=== PATIENT | female | born 1950 | race Caucasian/White ===

== ENCOUNTER → 2016-07-25 | Outpatient (CLI) | payer MEDICARE, BC ==
[~2016-07-25] MED LIST: ADVAIR 250/5028 PUFF IN; ALENDRONATE SOD40 MG PO; ALLEGRA-D 24 HO1 T24 PO; ALLEGRA60 MG PO; ALPRAZOLAM0.5 MG PO; AMBIEN 5MG TAB5 MG PO; AMITRIPTYLINE 225 MG PO; AMITRIPTYLINE10 M1 PO; AMITRIPTYLINE50 MG PO; AMLO5TAB PO; AMOXIL500 MG PO; ANTIBIOTIC PO; BACLOFEN 10MG T10 MG PO; BENTYL20 MG PO; BIAXIN250 MG PO; BISOPROLOL/HCTZ1 TA2 PO; CALTRATE 600 +1 TA1 PO; CALTRATE 600600 MG PO; CENTRUM1 TA2 PO; CIPRO 500MG TA500 MG PO; CLOTRIMAZOLE10 MG MM; DICLOFENAC 50MG50 MG PO; DICLOFENAC SOD75 MG PO; DICYCLOMINE HCL20 MG PO; DOCUSATE NA250 MG PO; ENOXAPARIN120 MG/0.8 SC; ESCITALOPRAM 2020 MG PO; FEXOFENADINE180 MG PO; FISH OIL1000 MG PO; FISH OIL500 MG PO; FUROSEMIDE40 MG PO; GABAPENTIN300 MG PO; HYDROCODONE-APA1 TA1 PO; HYDROCODONE/ACE1 TA5 PO; LASIX40 MG PO; LORTAB 500 MG-11 TAB PO; LORTAB 500 MG-71 TAB PO; LOVENOX SY40 MG/0.4 SC; LYRICA 100 MG100 MG PO; LYRICA50 MG PO; MAGMTHWSH PO; METHOTREXA50 MG/2 ML IJ; METHOTREXATE; MORPHINE SULFAT30 M3 PO; NUCYNTA50 MG PO; OMNICEF 300 MG300 MG PO; OXYGEN3 XX; POTASSIUM CHLO20 ME2 PO; PREDNICOT10 MG PO; PREDNISONE 20MG20 MG PO; PREDNISONE 5MG.5 MG PO; PREVACID 30MG C30 M1 PO; PRILOSEC OTC20 MG PO; PRILOSEC20 M1 PO; REGLAN 5MG TABLE5 MG PO; REMERON15 MG PO; SMZ-TMP 800 MG-1 TAB PO; TRAZADONE HYDR100 MG PO; TRAZODONE150 MG PO; URSODIOL300 M1 PO; VENTOLIN H0.09 MG/AC IH; VITAMIN C100 MG PO; VITAMIN C500 M1 PO; VITAMIN D31000 IU PO; XALATAN 0.005%2.5 M1 OP; XALATAN 0.2.5 ML/BOT OP; XANAX 1MG TABLET1 MG PO; XARELTO15 MG PO; ZEBETA 5 MG TABL5 MG PO; ZIAC 10 MG-6.251 TAB PO; ZOFRAN ODT8 MG PO; ZOFRAN4 MG PO
--- NOTE | 2016-07-26 18:22 | RADIOLOGY REPORT PS360 ---
DEXA SCAN.-BONE DENSITY STUDY HIPS AND LUMBAR SPINE HISTORY: Postmenopausal female 66-year-old hyperparathyroidism. Metal in spine, fixation elements and vertebral plasties. TECHNIQUE: DEXA scan hip and lumbar spine The most complete data summary and color graphic presentation of the today's ( and any prior ) DEXA findings are available in PACS. Definition and treatment guidelines included. COMPARISON: None listed LUMBAR SPINE: Not evaluated today due to the previous vertebral plasties and metallic posterior element/fusion elements HIPS: Femoral neck density is best predictor of hip fracture risk . Left femoral neck demonstrates the lowest T score -2.1 with a Z score -1.2 & BMD0.75 g/cm sq . Right femoral neck T score -1.8 Overall Hip Mean T score -1.5 with BMD0.82 g/cm sq . December 2014 DEXA T score -1.8 with mean BMD0.779 g/cm sq Thus this reflects a 5.4% increasein overall mean bone density at the hips in the interval. RADIUS: Osteopenia Distal third of radius with T score -1.5 and, Z score 0.2 near normal. BMD 0.575 Distal view the BMD 0.386 and T score -1.8 age-matched Z score -0.2. When compared to the distal third of the radius measurement from previous 2014 , today there is been no interval change. Again BMD 0.757 on both today and 2014 exam. IMPRESSION 1 RADIUS. Osteopenia stable . Stable osteopenia at distal third of radius T score = -1.5 today No change in BMD distal third radius compared to November 2014 2. HIPS: Osteopenia Overall T score -1.5 . There has been a 5.4% increase overall BMD at hips since November 2014 DEXA Lumbar spine. Prior fusion and vertebroplasty-not imaged WHO criteria for post-menopausal, Women: Normal: T-score at or above -1 SD Osteopenia: T-score between -1 and -2.5 SD Osteoporosis: T-score at or below -2.5 SD
--- NOTE | 2016-07-27 14:21 | RADIOLOGY REPORT PS360 ---
DIG MAMM-SCREEN JOSH W/CAD CAD Screening COMPARISON: Digital mammograms 05/24/2014 and 06/06/2015 INDICATION: There is no personal or family history of breast cancer. There is been previous biopsy left breast TECHNIQUE: Standard CC and MLO images were obtained. R2 CAD reviewed. FINDINGS: The breasts are composed primarily of fat with minimal scattered fibroglandular densities seen in each breast. There is a focal area of linear biopsy scarring extending to just beneath the surface of the skin upper outer quadrant left breast. There is no new or suspicious lesion in either breast and no suspicious microcalcifications. There is a stable small benign-appearing nodular density in the axillary tail the right breast. IMPRESSION: Stable exam with I type breast parenchyma no suspicious lesion seen recommend yearly follow-up BI-RADS CATEGORY: 2_Benign RECOMMENDED FOLLOWUP: 12M 12 MONTH FOLLOW-UP (A letter has been sent to the patient regarding results of the study.)
== END ==
LOC: RAD 07-13 15:30
DX: M81.0 Age-related osteoporosis without current pathological fracture (principal); Z12.31 Encounter for screening mammogram for malignant neoplasm of breast
CPT/HCPCS: G0202

== ENCOUNTER → 2017-02-01 | Outpatient (CLI) | payer MEDICARE, BC ==
[2017-02-01 11:42] LABS: HEMOGLOBIN 12.4 g/dL (12.2-16.2); LYMPH # 1.4 K/mm3 (0.7-4.5); LYMPH % 27.6 % (10-50.0)
[2017-02-01 12:11] LABS: BUN 10 mg/dL (7-18)
[2017-02-01 12:21] LABS: GFR (ESTIMATED) 49 ML/MIN (59-)
[2017-02-01 12:29] LABS: BUN 10 mg/dL (7-18)
[2017-02-01 12:31] LABS: GFR (ESTIMATED) 55 ML/MIN (59-)
[2017-02-02 08:40] LABS: Vitamin D, 25-Hydroxy 43.7 ng/mL (30.0-100.0)
[2017-02-04 12:36] LABS: Osteocalcin 11.5 ng/mL (.)
[2017-02-04 16:36] LABS: Tandem-R Ostase 18.9 ug/L (.)
== END ==
LOC: LAB 10:24
PROVIDERS: Internal Medicine Nephrology; Nurse Practitioner Family
DX: I10 Essential (primary) hypertension (principal); K76.89 Other specified diseases of liver; R60.9 Edema, unspecified; E03.9 Hypothyroidism, unspecified; M81.0 Age-related osteoporosis without current pathological fracture

== ENCOUNTER 2017-03-04 15:57 | Emergency (ER) | payer MEDICARE, BC ==
[~2017-03-04] VITALS: Ht 172.7 cm; Wt 136.1 kg
--- NOTE | 2017-03-04 16:31 | Emergency Room Report ---
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 N Clinical Suspician of Infection? N Mental Status: 1 - Regular (Normal Baseline) Sepsis Risk:Low Sepsis Risk Have you (or family members/close friends) recently traveled outside the [place]? N If Yes, where/when: Have you had exposure to infectious disease within the past month? N TB? Other? Specify: Patient fell three weeks ago, accidentally tripped, hyperflexed her right knee. She uses a walker but has some pain w WB. Has not yet been evaluated by an MD for this. She has chronic back pain for which she takes Lortab. No numbness. ALLERGIES Coded Allergies: erythromycin base (08/10/16) nitrofurantoin (From MACROBID) (08/10/16) GLUTEN (FOOD) (From GLUTEN (FOOD/DRUG)) (Severe, DIARRHEA 08/10/16) THIS ALLERGY WAS ADDED PER PATIENT. gluten (From GLUTEN (FOOD/DRUG)) (Severe, DIARRHEA 08/10/16) THIS ALLERGY WAS ADDED PER PATIENT. Home Medications Active Scripts Ciprofloxacin HCl (Cipro 500MG TAB) 500 MG PO BID #14 TAB Prov: 08/10/16 Reported Medications Furosemide (Furosemide 40MG) 20 MG PO TID FLUTICASONE/SALMETEROL (Advair 250-50 Diskus) 1 PUFF IN BID Bisoprolol Fumarate/Hydrochl (Ziac 10 Mg-6.25 Mg) 1 TAB PO DAILY FEXOFENADINE/PSEUDOEPHEDRINE (Tegan-D 24 Hour Tablet) 1 TAB PO DAILY Trazodone Hcl (Trazodone HCl) 150 MG PO QHS ALBUTEROL (Ventolin Hfa) 1-2 PUFFS IH Q6HP MULTIVITAMIN/IRON/FOLIC ACID (Centrum Complete Multivit Tab) 1 TAB PO QHS OMEPRAZOLE MAGNESIUM (Prilosec OTC) 20 MG PO DAILY CALCIUM CARBONATE/VITAMIN D3 (Caltrate 600 + D Tablet) 1 TAB PO BID URSODIOL 300 MG PO BID Alprazolam (Xanax 1MG) 1 MG PO BID HYDROCODONE/ACETAMINOPHEN (Lortab 10-325 (generic) Tablet) 1 TAB PO Q4HPRN SALMON OIL/OMEGA-3 FATTY ACIDS (Fish Oil 500 MG Softgel) 1,000 MG PO BID POTASSIUM CHL (Potassium Chloride) 20 MEQ PO BID Device (Oxygen Concentrator (Portable)) 1 UNIT XX UD #2 CHOLECALCIFEROL (VITAMIN D3) (Vitamin D) 1,000 IUNITS PO DAILY Latanoprost (Xalatan 0.005% Opth Soln) 1 DROP OP QHS Alendronate Sodium 40 MG PO WEEKLY Escitalopram Oxalate (Escitalopram 20MG) 20 MG PO DAILY Prednisone (Prednisone 5MG) 4 MG PO DAILY Pregabalin (Lyrica 100Mg) 150 MG PO BID History Medical History General CAD? No Angina: Yes IN: No Hypertension? Yes Hyperlipidemia? Yes CHF? No DVT? No PE? No COPD? Yes Asthma? No Anemia? No GERD? No Gastric ulcers? No GI Bleed? No Hernia? Yes Thyroid Problems? No Hypothyroidism? No CVA? No Seizures? No Diabetes? No End Stage Renal Disease? No UTI? Yes Stones? No BPH? No GB Disease: Yes Nephritic Syndrome? No Asplenia? No Hepatitis? Yes Sickle Cell Disease? No Arthritis? No Migraines? No Cataracts? Yes Glaucoma? Yes MRSA? Yes HIV? No TB? No Anxiety? No Depression? No Cancer? No Immunization Hx DT/Tetanus 5-10 Years Ago Flu 2014-16FSN Pneumonia Received In Past Surgical Hx Previous Surgery?Y GALLBLADDER L SHOULDER BI-LAT CARPAL TUNNEL TUBAL LIGATION LIVER BIOPSY R-LUNG BIOPSY LT BREAST BIOPSY BACK SX X3 Family History Family Hx Diabetes Yes CAD Yes Hypertension Yes Hyperlipidemia Yes Cancer Yes TB No Social History Smoking Hx Smoker: Never Smoker Tobacco: No Alcohol Alcohol: No Review of Systems All Other Systems Reviewed and Negative Musculoskeletal see HPI Physical Exam Vital Signs Vital Signs Date Time Temp Pulse Resp B/P Pulse O2 O2 Flow FiO2 Ox Delivery Rate 03/04 1657 72 16 142/72 95 03/04 1600 97.6 60 20 156/71 97 General Appearance normal appearance, WD/WN, no apparent distress, obese Eye Exam - bilateral eye normal exam, bilateral eye PERRL, bilateral eye EOMI Respiratory Status Yes: trachea midline. No: respiratory distress. Cardiovascular no peripheral edema, normal peripheral pulses Extremities non-tender, normal range of motion, normal inspection, no calf tenderness, no pedal edema, subjective pain, right popliteal area w/o any edema, cyst, or laxity; neg anterior drawer sign; slight pain with valgus maneuver; DP PT and popliteal pulses full with no calf tenderness or asymmetry; FROM all joints of BLE; foot warm and well perfused, sensate throughout, brisk CR. Strength 5 Upper Ext (L), 5 Upper Ext (R), 5 Lower Ext (L), 5 Lower Ext (R) Neurologic alert, normal exam, no motor/sensory deficits, oriented x 3 Glascow Coma Scale Glascow Coma Scale Response Value EYE response: 4 Spontaneously 4 MOTOR response: 6 OBEYS 6 VERBAL response: 5 Oriented & Converses 5 Total 15 Skin intact, normal color, warm/dry Medical Decision Making LABS/Meds/Orders Pt receiving controlled substance in ED? No Results/Orders Orders Procedure Date/time Status STABILIZE JOINT 03/04 1737 Active KNEE-3 VIEWS-RT 03/04 1607 Active XRAY/CT/US XRAY/CT/US XRAY knee XR interpretation by reviewed by me Xray Results no fracture seen (DJD neg acute) Departure Departure Time of Disposition 1736 Disposition DC Home or Self Care(routine) Clinical Impression Primary Impression: Knee pain Qualifiers: Chronicity: acute Laterality: right Qualified Code: M25.561 - Pain in right knee Condition STABLE Referrals Maximo HADLEY,Mor (Family) George Lewis MD Patient Instructions DI for Knee Pain Additional Instructions DISHA wrap for comfort, see Dr. Lewis for follow up as well as Dr. Marsh, continue current pain medications as already prescribed, use walker to help prevent falls Discharge Counseling Counseled pt/family regarding diagnosis, test results, medications/RX, home care, follow up needs ED Critical Care Critical Care No at 1738
--- NOTE | 2017-03-04 17:46 | RADIOLOGY REPORT PS360 ---
KNEE-3 VIEWS-RT HISTORY: Knee pain PAIN ORDERING PHYSICIAN: Daniela Peters MD PATIENT AGE: 66 years FINDINGS: There are moderate osteoarthritic changes involving the medial compartment and patellofemoral joint. Spurring is noted along the distal femur and proximal tibia. 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 No acute fracture or dislocation. IMPRESSION: Osteoarthritic change similar to the previous exam of 07/18/2016, no acute finding
[2017-03-04 17:57] VITALS: BP 140/72
--- OUTSIDE RECORDS SUMMARY | 2017-03-27 05:24 | External Medical Summary Rpt ---
Author Author , NITHYA BARRIGA Address Unknown Phone Care Team Providers Care Cnc Service Engineer Name Role Phone [facility] Unavailable Unavailable [facility], [facility] Mor Marsh MD, Unavailable Unavailable Mor Noriega MD, Unavailable Unavailable Juana Noriega MD Purpose Continuity of Care Document - 10-18-2012 through 2016 Problems Code Diagnosis DOS Provider Status 276.51 Dehydration 04-22-2013 [facility] [id number] Arthritis 04-22-2013 [facility] 780.97 Altered 04-22-2013 [facility] 805.4 Compression 04-22-2013 [place] fracture [facility] lumbar [facility] spine [id number] Lumbar disc [facility] radiculopat hy [id number] Orthostatic [facility] 558.9 Gastroenter [facility] 781.3 Ataxia [facility] 787.03 Vomiting [facility] Allergies, Adverse Reactions, Alerts Type Drug Allergy Adverse Reaction to Substance Substance Reaction Severity Macrolide I-ITCHING Intermediate (Erythromycin-Related ) Nitrofurantoin Unknown Mild Medications Na ND Rx Da Fi Fi Am Da Di Ph RX Ph St me C No te ll ll ou ys ag ar # ys at rm s nt no ma ic us Or Da si cy ia de te s n re d MA 00 11 1 No PA 90 -0 P 41 7- Lo 32 98 20 ng 5 26 13 er MG 1 Ac TA ti BL ve ET HY [address] 40 -0 OC 60 7- Lo OD 36 20 ng ON 76 13 er -A 2 CE Ac TA ti HI ve NO PH N 10 -3 25 AM 51 11 1 No LO 07 -0 DI 90 7- Lo PI 45 20 ng NE 12 13 er 0 BE Ac SY ti LA ve TE 5 MG TA B BI 00 11 1 No SO 18 -0 MD 50 7- Lo OL 77 20 ng OL 13 13 er 0 FU Ac MA ti RA ve TE 5 MG TA B OY [address] 90 -0 ER 41 7- Lo 88 20 ng SH 36 13 er EL 1 L Ac CA ti LC ve IU M 50 0 MG TB FU 51 11 1 No RO 07 -0 SE 90 7- Lo HI 07 20 ng DE 32 13 er 0 40 Ac ti MG ve TA BL ET Ga 68 11 1 No ba 08 -0 pe 40 7- Lo nt 08 20 ng in 00 13 er 1 30 Ac 0M ti G ve Ca ps ul e MD 00 11 1 No ED 05 -0 NI 40 7- Lo SO 01 20 ng NE 72 13 er 0 10 Ac ti MG ve TA BL ET PA 11 1 No TI -0 EN 7- Lo T' 20 ng S 13 er OW N Ac HO ti ME ve ME DS SO 00 11 0 No DI 40 -0 UM 97 6- Lo 98 20 ng CH 30 13 er LO 9 RI Ac DE ti ve 0. 9% SO FRANCESCA TI ON Na 76 11 0 No lo 32 -0 xo 91 6- Lo ne 46 20 ng 90 13 er 2M 5 G/ Ac 2M ti L ve Sy ri ng e Sa 63 11 1 No li 80 -0 ne 70 6- Lo 10 20 ng Fl 07 13 er us 5 h Ac 10 ti ML ve Sy ri ng e Na 76 11 0 No lo 32 -0 xo 91 6- Lo ne 46 20 ng 90 13 er 2M 5 G/ Ac 2M ti L ve Sy ri ng e OX 00 09 0 No YC 40 -2 OD 60 3- Lo ON 51 20 ng E- 26 13 er AC 2 ET Ac AM ti IN ve OP HE N 5- 32 5 HY [address] 40 -2 OC 60 3- Lo OD 36 20 ng ON 66 13 er -A 2 CE Ac TA ti HI ve NO PH 7. 5- 32 5 MA 99 09 1 No GI 99 -2 C 99 3- Lo MO 99 20 ng UT 90 13 er HW 0A Ac H; ti 24 ve 0M L SELWYN TT LE AM 51 09 3 No LO 07 -2 DI 90 1- Lo PI 45 20 ng NE 12 13 er 0 BE Ac SY ti LA ve TE 5 MG TA B BI 00 09 3 No SO 18 -2 MD 50 1- Lo OL 77 20 ng OL 13 13 er 0 FU Ac MA ti RA ve TE 5 MG TA B FU 51 09 3 No RO 07 -2 SE 90 1- Lo HI 07 20 ng DE 32 13 er 0 40 Ac ti MG ve TA BL ET GA 62 09 3 No BA 75 -2 PE 60 1- Lo NT 20 20 ng IN 20 13 er 1 60 Ac 0 ti MG ve TA BL ET LO 51 09 3 No RA 07 -2 TA 90 1- Lo DI 24 20 ng NE 62 13 er 0 10 Ac ti MG ve TA BL ET TR 00 09 3 No IP 16 -2 LE 80 1- Lo 01 20 ng AN 20 13 er TI 9 BI Ac OT ti IC ve OI NT ME NT MD 00 09 3 No ED 05 -2 NI 40 1- Lo SO 01 20 ng NE 82 13 er 0 20 Ac ti MG ve TA BL ET PA 09 3 No TI -2 EN 1- Lo T' 20 ng S 13 er OW N Ac HO ti ME ve ME DS PA 51 09 3 No NT 07 -2 OP 90 1- Lo RA 05 20 ng ZO 12 13 er LE 0 Ac SO ti D ve DR 40 MG TA B SO 00 09 1 No DI 40 -2 UM 97 0- Lo 98 20 ng CH 30 13 er LO 9 RI Ac DE ti ve 0. 9% SO FRANCESCA TI ON Sa 63 09 1 No li 80 -2 ne 70 0- Lo 10 20 ng Fl 07 13 er us 5 h Ac 10 ti ML ve Sy ri ng e MA 00 09 4 No PA 90 -2 P 41 0- Lo 32 98 20 ng 5 26 13 er MG 1 Ac TA ti BL ve ET HY [address] 40 -2 OC 60 0- Lo OD 36 20 ng ON 66 13 er -A 2 CE Ac TA ti HI ve NO PH 7. 5- 32 5 HY [address] 40 -2 OM 91 0- Lo OR 31 20 ng PH 23 13 er ON 0 E Ac 2 ti MG ve /M L CA RP UJ CT MO 00 09 3 No RP 40 -2 HI 68 0- Lo NE 33 20 ng 00 13 er HIRSCH 1 LF Ac ti ER ve 30 MG TA BL ET SO 00 09 0 No FRANCESCA 00 -2 -M 90 0- Lo ED 04 20 ng RO 72 13 er L 2 12 Ac 5 ti MG ve AL Al 68 09 4 No pr 08 -2 az 40 0- Lo ol 02 20 ng am 00 13 er 1 1M Ac G ti Ta ve bl et AM 51 09 4 No IT 07 -2 RI 90 0- Lo PT 13 20 ng YL 12 13 er IN 0 E Ac HC ti L ve 10 MG TA B Ga 68 09 1 No ba 08 -2 pe 40 0- Lo nt 08 20 ng in 00 13 er 1 30 Ac 0M ti G ve Ca ps ul e LA 24 09 4 No TA 20 -2 NO 80 0- Lo MD 46 20 ng OS 32 13 er T 5 0. Ac 00 ti 5% ve EY E DR OP S UR 00 09 4 No SO 59 -2 DI 13 0- Lo OL 15 20 ng 90 13 er 30 1 0 Ac MG ti ve CA PS UL E SO 00 05 0 No DI 40 -1 UM 97 6- Lo 98 20 ng CH 30 13 er LO 9 RI Ac DE ti ve 0. 9% SO FRANCESCA TI ON Sa 63 05 1 No li 80 -1 ne 70 6- Lo 10 20 ng Fl 07 13 er us 5 h Ac 10 ti ML ve Sy ri ng e ON 00 05 0 No DA 64 -1 NS 16 6- Lo ET 08 20 ng RO 02 13 er N 5 HC Ac L ti 4 ve MG /2 ML AL MA 00 05 1 No PA 90 -1 P 41 6- Lo 32 98 20 ng 5 26 13 er MG 1 Ac TA ti BL ve ET Ga 68 05 1 No ba 08 -1 pe 40 6- Lo nt 08 20 ng in 00 13 er 1 30 Ac 0M ti G ve Ca ps ul e MD 00 05 1 No ED 05 -1 NI 40 6- Lo SO 01 20 ng NE 72 13 er 0 10 Ac ti MG ve TA BL ET BI 00 05 1 No SO 18 -1 MD 50 6- Lo OL 77 20 ng OL 13 13 er 0 FU Ac MA ti RA ve TE 5 MG TA B LO 00 05 1 No VE 07 -1 NO 50 6- Lo X 62 20 ng 40 04 13 er 1 MG Ac /0 ti .4 ve ML SY RI NG E Al 68 05 1 No pr 08 -1 az 40 6- Lo ol 02 20 ng am 00 13 er 1 1M Ac G ti Ta ve bl et MD 00 05 1 No OT 00 -0 ON 80 5- Lo IX 84 20 ng [address] 9 Ac 40 ti ve MG TA BL ET MD 00 05 1 No ED 05 -0 NI 40 5- Lo SO 01 20 ng NE 72 13 er 0 10 Ac ti MG ve TA BL ET Al 68 05 1 No pr 08 -0 az 40 5- Lo ol 02 20 ng am 00 13 er 1 1M Ac G ti Ta ve bl et BI 00 05 1 No SO 18 -0 MD 50 5- Lo OL 77 20 ng OL 13 13 er 0 FU Ac MA ti RA ve TE 5 MG TA B LO 00 05 1 No VE 07 -0 NO 50 5- Lo X 62 20 ng 40 04 13 er 1 MG Ac /0 ti .4 ve ML SY RI NG E Ga 68 05 1 No ba 08 -0 pe 40 5- Lo nt 08 20 ng in 00 13 er 1 30 Ac 0M ti G ve Ca ps ul e AM 51 05 1 No IT 07 -0 RI 90 5- Lo PT 13 20 ng YL 32 13 er IN 0 E Ac HC ti L ve 50 MG TA B ON 00 05 1 No DA 37 -0 NS 87 5- Lo ET 73 20 ng RO 29 13 er N 3 OD Ac T ti 4 ve MG TA BL ET CE 00 05 2 No FT 40 -0 RI 97 4- Lo AX 33 20 ng ON 30 13 er E 4 1 Ac GM ti ve AL So 00 05 2 No d 07 -0 Ch 47 4- Lo lo 10 20 ng ri 11 13 er de 3 Ac 0. ti 9% ve 50 ML Ad v DE 00 05 2 No XT 40 -0 RO 97 4- Lo SE 92 20 ng 60 13 er 5% 9 -0 Ac .4 ti 5% ve NA CL IV SO LN Me 00 05 2 No th 00 -0 yl 90 4- Lo pr 19 20 ng ed 00 13 er ni 9 so Ac lo ti ne ve So d [facility]sch cc in a HY [address] 40 -0 OC 60 4- Lo OD 36 20 ng ON 76 13 er -A 2 CE Ac TA ti HI ve NO PH N 10 -3 25 Vital Signs 04-24-2013 14:58 Name Value Interpretat Reference Comment ion Range Body 98.3 [degF] Temperature BP 72 mm[Hg] Diastolic BP Systolic 131 mm[Hg] Heart 69 /min Rate/Pulse Respiratory 18 /min Rate 04-24-2013 08:00 Name Value Interpretat Reference Comment ion Range O2% 97 % 04-22-2013 12:10 Name Value Interpretat Reference Comment ion Range Height 172.72 cm Weight 112.974 kg Measured 04-22-2013 09:14 Name Value Interpretat Reference Comment ion Range Body 98.4 [degF] Temperature BP 72 mm[Hg] Diastolic BP Systolic 127 mm[Hg] Heart 50 /min Rate/Pulse O2% 100 % Respiratory 18 /min Rate Weight 0 [oz_av] Measured 03-10-2013 11:30 Name Value Interpretat Reference Comment ion Range Body 97.5 [degF] Temperature BP 84 mm[Hg] Diastolic BP Systolic 162 mm[Hg] Heart 60 /min Rate/Pulse Respiratory 20 /min Rate 03-10-2013 08:00 Name Value Interpretat Reference Comment ion Range O2% 95 % 03-06-2013 18:15 Name Value Interpretat Reference Comment ion Range Height 172.72 cm Weight 106.397 kg Measured 03-06-2013 13:53 Name Value Interpretat Reference Comment ion Range Body 98.1 [degF] Temperature BP 63 mm[Hg] Diastolic BP Systolic 126 mm[Hg] Heart 77 /min Rate/Pulse O2% 93 % Respiratory 20 /min Rate Weight 0 [oz_av] Measured 10-31-2012 16:00 Name Value Interpretat Reference Comment ion Range Body 98.6 [degF] Temperature BP 67 mm[Hg] Diastolic BP Systolic 130 mm[Hg] Heart 68 /min Rate/Pulse Respiratory 20 /min Rate 10-31-2012 08:20 Name Value Interpretat Reference Comment ion Range O2% 98 % 10-30-2012 14:56 Name Value Interpretat Reference Comment ion Range Height 172.72 cm Weight 103.874 kg Measured 10-30-2012 03:32 Name Value Interpretat Reference Comment ion Range Body 98.1 [degF] Temperature BP 67 mm[Hg] Diastolic BP Systolic 130 mm[Hg] Heart 81 /min Rate/Pulse O2% 93 % Respiratory 20 /min Rate Weight 0 [oz_av] Measured 10-20-2012 10:30 Name Value Interpretat Reference Comment ion Range Body 98.4 [degF] Temperature BP 50 mm[Hg] Diastolic BP Systolic 109 mm[Hg] Heart 78 /min Rate/Pulse Respiratory 18 /min Rate 10-20-2012 09:00 Name Value Interpretat Reference Comment ion Range O2% 95 % 10-18-2012 13:32 Name Value Interpretat Reference Comment ion Range O2% 96 % 10-18-2012 13:30 Name Value Interpretat Reference Comment ion Range Body 97.8 [degF] Temperature BP 63 mm[Hg] Diastolic BP Systolic 107 mm[Hg] Heart 58 /min Rate/Pulse Height 152.40 cm Respiratory 20 /min Rate Weight 236 [lb_av] Measured Weight 107.077 kg Measured Results Labs Lab Lab Date Result Refere Interp Status Commen Order Detail nces retati t Range on Comp Metab 1998 Pnl SerPl (01-23-2017 13:02) Comment: [employer] Guidelines Comment: Comment: Stage Description GFR Comment: 1 Normal or High 90+ Comment: 2 Mild decrease 60-89 Comment: 3 Moderate decrease 30-59 Comment: 4 Severe decrease 15-29 Comment: 5 Kidney failure <15 Anion 2.0 3.0-11. complet Gap3 017 mmol/L 0 ed SerPl-s 13:02 Cnc BUN/Cre 14.0 7.0-25. complet at 017 0 ed SerPl 13:02 Albumin 1.3 1.5-2.5 complet /Glob 017 g/dL ed SerPl 13:02 Globuli 3.4 complet n Ur 017 gm/dL ed Elph-mC 13:02 nc GFR/BSA 55 >60 complet .pred 017 mL/min/ ed SerPl 13:02 1.73 MDRD-Ar VRat Bilirub 0.4 0.3-1.2 complet 017 mg/dL ed SerPl-m 13:02 Cnc ALP 130 U/L 25-100 complet SerPl-c 017 ed Cnc 13:02 AST 29 U/L 0-33 complet SerPl-c 017 ed Cnc 13:02 ALT 25 U/L 7-40 complet SerPl w 017 ed 13:02 P-5'-P- cCnc Albumin 4.30 3.20-4. complet 017 g/dL 80 ed SerPl-m 13:02 Cnc Prot 7.7 5.7-8.2 complet SerPl-m 017 g/dL ed Cnc 13:02 Calcium 9.8 8.7-10. complet 017 mg/dL 4 ed XXX-sCn 13:02 c CO2 36.0 20.0-31 complet SerPl-s 017 mmol/L .0 ed Cnc 13:02 Chlorid 90 99-109 complet e 017 mmol/L ed SerPl-s 13:02 Cnc Potassi 4.2 3.5-5.5 complet um 017 mmol/L ed Bld-sCn 13:02 c Sodium 128 132-146 complet Bld-sCn 017 mmol/L ed c 13:02 Creat 1.00 0.60-1. complet Bld-mCn 017 mg/dL 30 ed c 13:02 BUN 14 9-23 complet Bld-mCn 017 mg/dL ed c 13:02 Glucose 95 70-100 complet 017 mg/dL ed Bld-mCn 13:02 c CRP SerPl-mCnc (01-23-2017 13:02) CRP 1.28 0.00-1. complet SerPl-m 017 mg/dL 00 ed Cnc 13:02 ESR Bld Qn (01-23-2017 13:02) ESR Bld 52 0-30 complet Qn 017 mm/hr ed 13:02 CBC W Diff pnl,unspecified Bld (01-23-2017 13:02) Basophi 0.02 0.00-0. complet ls # 017 10*3/mm 20 ed Bld 13:02 3 Auto Eosinop 0.12 0.00-0. complet hil # 017 10*3/mm 30 ed Bld 13:02 3 Auto Monocyt 0.53 0.00-1. complet es # 017 10*3/mm 00 ed Bld 13:02 3 Auto Lymphoc 1.65 0.60-4. complet ytes # 017 10*3/mm 80 ed Bld 13:02 3 Auto Neutrop 3.92 1.50-8. complet hils # 017 10*3/mm 30 ed Bld 13:02 3 Auto Imm 1.6 % 0.0-0.6 complet Granulo 017 ed cytes/l 13:02 euk NFr Bld Basophi 0.3 % 0.0-1.0 complet ls/leuk 017 ed NFr 13:02 Bld Auto Eosinop 1.9 % 0.0-3.0 complet hil/renetta 017 ed k NFr 13:02 Bld Auto Monocyt 8.4 % 0.0-12. complet es/leuk 017 0 ed NFr 13:02 Bld Auto Lymphoc 26.0 % 24.0-44 complet ytes/le 017 .0 ed uk NFr 13:02 Bld Auto Neutrop 61.8 % 41.0-71 complet hils/le 017 .0 ed uk NFr 13:02 Bld Auto Platele 221 150-450 complet t # Bld 017 10*3/mm ed Auto 13:02 3 PMV Bld 10.0 fL 6.0-12. complet Auto 017 0 ed 13:02 RDW RBC 45.5 fl 37.0-54 complet Auto 017 .0 ed 13:02 RDW RBC 13.5 % 11.3-14 complet 017 .5 ed Auto-Rt 13:02 o MCHC 32.9 32.0-36 complet RBC 017 g/dL .0 ed Auto-mC 13:02 nc MCH RBC 30.5 pg 27.0-31 complet Qn 017 .0 ed Auto 13:02 MCV RBC 92.8 fL 80.0-99 complet Auto 017 .0 ed 13:02 Hct VFr 38.9 % 34.5-44 complet Bld 017 .0 ed Auto 13:02 WBC 09-2 6.34 3.50-10 complet nRBC 017 10*3/mm .80 ed cor # 13:02 3 Bld Hgb 01-23-2 12.8 11.5-15 complet Bld-mCn 017 g/dL .5 ed c 13:02 RBC # 09-2 4.19 3.89-5. complet Bld 017 10*6/mm 14 ed Auto 13:02 3 Imm 09-2 0.10 0.00-0. complet Granulo 017 10*3/mm 03 ed cytes # 13:02 3 Bld CRP SerPl-mCnc (07-30-2016 11:53) CRP 16.20 0.00-10 complet SerPl-m 017 mg/dL .00 ed Cnc 11:53 ESR Bld Qn (07-30-2016 11:53) ESR Bld 53 0-30 complet Qn 017 mm/hr ed 11:53 Comp Metab 1998 Pnl SerPl (07-30-2016 11:53) Comment: [employer] Guidelines Comment: Comment: Stage Description GFR Comment: 1 Normal or High 90+ Comment: 2 Mild decrease 60-89 Comment: 3 Moderate decrease 30-59 Comment: 4 Severe decrease 15-29 Comment: 5 Kidney failure <15 BUN 10 9-23 complet Bld-mCn 017 mg/dL ed c 11:53 Anion 1.0 3.0-11. complet Gap3 017 mmol/L 0 ed SerPl-s 11:53 Cnc BUN/Cre 12.5 7.0-25. complet at 017 0 ed SerPl 11:53 Albumin 1.3 1.5-2.5 complet /Glob 017 g/dL ed SerPl 11:53 Globuli 3.1 complet n Ur 017 gm/dL ed Elph-mC 11:53 nc GFR/BSA 71 >60 complet .pred 017 mL/min/ ed SerPl 11:53 1.73 MDRD-Ar VRat Bilirub 0.4 0.3-1.2 complet 017 mg/dL ed SerPl-m 11:53 Cnc ALP 120 U/L 25-100 complet SerPl-c 017 ed Cnc 11:53 AST 32 U/L 0-33 complet SerPl-c 017 ed Cnc 11:53 ALT 33 U/L 7-40 complet SerPl w 017 ed 11:53 P-5'-P- cCnc Albumin 4.10 3.20-4. complet 017 g/dL 80 ed SerPl-m 11:53 Cnc Prot 7.2 5.7-8.2 complet SerPl-m 017 g/dL ed Cnc 11:53 Calcium 9.4 8.7-10. complet 017 mg/dL 4 ed XXX-sCn 11:53 c CO2 37.0 20.0-31 complet SerPl-s 017 mmol/L .0 ed Cnc 11:53 Chlorid 92 99-109 complet e 017 mmol/L ed SerPl-s 11:53 Cnc Potassi 3.8 3.5-5.5 complet um 017 mmol/L ed Bld-sCn 11:53 c Sodium 130 132-146 complet Bld-sCn 017 mmol/L ed c 11:53 Creat 0.80 0.60-1. complet Bld-mCn 017 mg/dL 30 ed c 11:53 Glucose 88 70-100 complet 017 mg/dL ed Bld-mCn 11:53 c BASIC METABOLIC PANEL (04-23-2013 06:30) Glucose 86 74-106 complet 013 mg/dL ed Bld-mCn 06:30 c BUN 32 7-18 complet Bld-mCn 013 mg/dL ed c 06:30 Creat 1.0 0.6-1.0 complet SerPl-m 013 mg/dL ed Cnc 06:30 ESTIMAT 100 50-200 complet ED 013 ML/MIN ed CREATIN 06:30 INE CLEARAN CE GFR 56 59- complet (ESTIMA 013 ML/MIN ed SUDHIR) 06:30 Sodium 137 136-145 complet SerPl-s 013 mmoL/L ed Cnc 06:30 Potassi 3.8 3.5-5.1 complet um 013 mmoL/L ed SerPl-s 06:30 Cnc Chlorid 94 98-107 complet e 013 mmoL/L ed SerPl-s 06:30 Cnc CO2 36 21.0-32 complet SerPl-s 013 mmoL/L .0 ed Cnc 06:30 Calcium 8.0 8.5-10. complet 013 mg/dL 1 ed SerPl-m 06:30 Cnc ARTERIAL BLOOD GAS (04-22-2013 10:40) ARTERIA 7.44 7.35-7. complet L PH 013 MMOL/L 45 ed 10:40 ARTERIA 04-22-2 48.0 35.0-45 complet L PCO2 013 MMHG .0 ed 10:40 ARTERIA 04-22-2 93.3 80-100 complet L PO2 013 MMHG ed 10:40 ARTERIA 2 32.1 22.0-26 complet L HCO3 013 MMOL/L .0 ed 10:40 ARTERIA 04-22-2 33.6 23-27 complet L TCO2 013 MMOL/L ed 10:40 Base 04-22-2 8.0 -2.4-+2 complet excess 013 MMOL/L .3 ed BldA-sC 10:40 nc ARTERIA 2 97.1 % 90-100 complet L O2 013 ed SAT 10:40 OXYGEN 28% complet 013 NASAL ed 10:40 CANNULA Arteria ACCEPTA complet l 013 BLE ed patency 10:40 Wrist a SOURCE RIGHT complet 013 RADIAL ed 10:40 URINALYSIS/COMPLETE (04-22-2013 10:15) URINE 04-22-2 YELLOW YELLOW complet COLOR 013 ed 10:15 URINE 04-22-2 CLEAR CLEAR complet APPEARA 013 ed NCE 10:15 URINE 04-22-2 NEGATIV NEG complet GLUCOSE 013 E ed - 10:15 DIPSTIC K URINE 04-22-2 NEGATIV NEG complet BILIRUB 013 E ed IN - 10:15 DIPSTIC K URINE 04-22-2 NEGATIV NEG complet KETONE 013 E mg/dL ed 10:15 URINE 04-22-2 1.010 1.005-1 complet SPECIFI 013 UNK .030 ed C 10:15 GRAVITY URINE 04-22-2 NEGATIV NEG complet BLOOD 013 E ed 10:15 URINE 04-22-2 6.0 UNK 5.0-8.5 complet PH 013 ed 10:15 URINE 04-22-2 NEGATIV NEG complet PROTEIN 013 E mg/dL ed - 10:15 DIPSTIC K URINE 04-22-2 0.2 NEG complet UROBILI 013 E.U./dL ed NOGEN - 10:15 DIPSTIC K URINE 04-22-2 NEGATIV NEG complet NITRATE 013 E ed - 10:15 DIPSTIC K URINE 04-22-2 NEGATIV NEG complet LEUK 013 E ed ESTERAS 10:15 E URINE OCC 0 complet RBC 013 rbc/hpf ed 10:15 URINE OCC O complet WBC 013 wbc/hpf ed 10:15 URINE OCC 0-5 complet SQUAMOU 013 #/hpf ed S CELLS 10:15 URINE 2+ O complet BACTERI 013 ed A 10:15 COMPREHENSIVE METABOLIC PANEL (04-22-2013 09:50) Glucose 112 74-106 complet 013 mg/dL ed Bld-mCn 09:50 c BUN 61 7-18 complet Bld-mCn 013 mg/dL ed c 09:50 Creat 2.1 0.6-1.0 complet SerPl-m 013 mg/dL ed Cnc 09:50 ESTIMAT 46 50-200 complet ED 013 ML/MIN ed CREATIN 09:50 INE CLEARAN CE GFR 24 59- complet (ESTIMA 013 ML/MIN ed SUDHIR) 09:50 Sodium 131 136-145 complet SerPl-s 013 mmoL/L ed Cnc 09:50 Potassi 3.9 3.5-5.1 complet um 013 mmoL/L ed SerPl-s 09:50 Cnc Chlorid 87 98-107 complet e 013 mmoL/L ed SerPl-s 09:50 Cnc CO2 34 21.0-32 complet SerPl-s 013 mmoL/L .0 ed Cnc 09:50 Calcium 9.2 8.5-10. complet 013 mg/dL 1 ed SerPl-m 09:50 Cnc Prot 6.3 6.4-8.2 complet SerPl-m 013 gm/dL ed Cnc 09:50 Albumin 3.2 3.4-5.0 complet 013 gm/dL ed SerPl-m 09:50 Cnc Globuli 3.1 1.3-3.2 complet n 013 gm/dL ed Ser-mCn 09:50 c Albumin 1.0 UNK 1.1-1.8 complet /Glob 013 ed SerPl-m 09:50 Rto Bilirub 11-06-2 0.4 0.2-1.0 complet 013 mg/dL ed SerPl-m 09:50 Cnc AST 04-22-2 36 U/L 15-37 complet SerPl-c 013 ed Cnc 09:50 ALT 04-22-2 53 U/L 30-65 complet SerPl-c 013 ed Cnc 09:50 ALP 04-22-2 189 U/L 50-136 complet SerPl-c 013 ed Cnc 09:50 CBC with AUTO DIFF (04-22-2013 09:50) WBC # 11-06-2 15.4 4.8-10. complet Bld 013 K/MM3 8 ed Auto 09:50 RBC # 04-22-2 3.79 4.2-5.4 complet Bld 013 M/mm3 ed Auto 09:50 Hgb 04-22-2 11.5 12.2-16 complet Bld-mCn 013 g/dL .2 ed c 09:50 Hct Fr 2 35.4 % 37.0-47 complet Bld 013 .0 ed 09:50 MCV RBC 04-22-2 93.6 fl 82.2-97 complet 013 .8 ed 09:50 MCH RBC 04-22-2 30.5 pg 27-31.2 complet Qn 013 ed Auto 09:50 MEAN 04-22-2 32.6 31.8-35 complet CORPUSC 013 g/dl .4 ed ULAR 09:50 HGB CONC RDW RBC 04-22-2 16.7 % 11.5-17 complet Auto 013 .5 ed 09:50 Platele 04-22-2 264 142-424 complet t Bld 013 K/mm3 ed Ql 09:50 Manual MEAN 04-22-2 7.5 fl 7.4-10. complet PLATELE 013 4 ed T 09:50 VOLUME Granulo 04-22-2 88.1 % 37.0-80 complet cytes 013 .0 ed Fr Bld 09:50 Auto LYMPH % 04-22-2 7.5 % 10-50.0 complet 013 ed 09:50 Monocyt 04-22-2 3.2 % 1.7-9.3 complet es Fr 013 ed Bld 09:50 Auto Eosinop 04-22-2 1.0 % 0.1-12. complet hil Fr 013 0 ed Bld 09:50 Auto Basophi 11-06-2 0.2 % 0.1-2.0 complet ls Fr 013 ed Bld 09:50 Auto Granulo -06-2 13.5 1.8-7.8 complet cytes # 013 K/mm3 ed Bld 09:50 Auto Lymphoc -06-2 1.2 0.7-4.5 complet ytes Fr 013 K/mm3 ed Bld 09:50 Auto Monocyt 11-06-2 0.5 0.1-1.0 complet es # 013 K/mm3 ed Bld 09:50 Auto Eosinop -06-2 0.2 0.0-0.4 complet hil # 013 K/mm3 ed Bld 09:50 Auto Basophi 11-06-2 0.0 0-0.2 complet ls # 013 K/MM3 ed Bld 09:50 Auto URINALYSIS/COMPLETE (03-10-2013 09:30) URINE 09-24-2 YELLOW YELLOW complet COLOR 013 ed 09:30 URINE -24-2 CLEAR CLEAR complet APPEARA 013 ed NCE 09:30 URINE 09-24-2 NEGATIV NEG complet GLUCOSE 013 E ed - 09:30 DIPSTIC K URINE 09-24-2 NEGATIV NEG complet BILIRUB 013 E ed IN - 09:30 DIPSTIC K URINE 09-24-2 NEGATIV NEG complet KETONE 013 E mg/dL ed 09:30 URINE 09-24-2 Less 1.005-1 complet SPECIFI 013 than or .030 ed C 09:30 equal GRAVITY to 1.005 URINE -24-2 NEGATIV NEG complet BLOOD 013 E ed 09:30 URINE -24-2 7.5 UNK 5.0-8.5 complet PH 013 ed 09:30 URINE 09-24-2 NEGATIV NEG complet PROTEIN 013 E mg/dL ed - 09:30 DIPSTIC K URINE 09-24-2 0.2 NEG complet UROBILI 013 E.U./dL ed NOGEN - 09:30 DIPSTIC K URINE 09-24-2 NEGATIV NEG complet NITRATE 013 E ed - 09:30 DIPSTIC K URINE 09-24-2 TRACE NEG complet LEUK 013 ed ESTERAS 09:30 E URINE 09-24-2 3-5 O complet WBC 013 wbc/hpf ed 09:30 URINE 09-24-2 5-10 0-5 complet SQUAMOU 013 #/hpf ed S CELLS 09:30 BASIC METABOLIC PANEL (03-07-2013 06:15) Glucose 124 74-106 complet 013 mg/dL ed Bld-mCn 06:15 c BUN 16 7-18 complet Bld-mCn 013 mg/dL ed c 06:15 Creat 0.9 0.6-1.0 complet SerPl-m 013 mg/dL ed Cnc 06:15 ESTIMAT 105 50-200 complet ED 013 ML/MIN ed CREATIN 06:15 INE CLEARAN CE GFR 63 59- complet (ESTIMA 013 ML/MIN ed SUDHIR) 06:15 Sodium 138 136-145 complet SerPl-s 013 mmoL/L ed Cnc 06:15 Potassi 4.3 3.5-5.1 complet um 013 mmoL/L ed SerPl-s 06:15 Cnc Chlorid 101 98-107 complet e 013 mmoL/L ed SerPl-s 06:15 Cnc CO2 33 21.0-32 complet SerPl-s 013 mmoL/L .0 ed Cnc 06:15 Calcium 8.2 8.5-10. complet 013 mg/dL 1 ed SerPl-m 06:15 Cnc CBC with AUTO DIFF (03-07-2013 06:15) WBC # 03-07- 9.5 4.8-10. complet Bld 013 K/MM3 8 ed Auto 06:15 RBC # 03-07-2 3.84 4.2-5.4 complet Bld 013 M/mm3 ed Auto 06:15 Hgb 11.9 12.2-16 complet Bld-mCn 013 g/dL .2 ed c 06:15 Hct Fr 36.3 % 37.0-47 complet Bld 013 .0 ed 06:15 MCV RBC 94.5 fl 82.2-97 complet 013 .8 ed 06:15 MCH RBC 30.9 pg 27-31.2 complet Qn 013 ed Auto 06:15 MEAN 32.7 31.8-35 complet CORPUSC 013 g/dl .4 ed ULAR 06:15 HGB CONC RDW RBC 21-2 16.0 % 11.5-17 complet Auto 013 .5 ed 06:15 Platele -21-2 251 142-424 complet t Bld 013 K/mm3 ed Ql 06:15 Manual MEAN 21-2 7.8 fl 7.4-10. complet PLATELE 013 4 ed T 06:15 VOLUME Granulo -21-2 91.2 % 37.0-80 complet cytes 013 .0 ed Fr Bld 06:15 Auto LYMPH % -21-2 6.8 % 10-50.0 complet 013 ed 06:15 Monocyt 09-21-2 1.9 % 1.7-9.3 complet es Fr 013 ed Bld 06:15 Auto Eosinop -21-2 0.0 % 0.1-12. complet hil Fr 013 0 ed Bld 06:15 Auto Basophi -21-2 0.1 % 0.1-2.0 complet ls Fr 013 ed Bld 06:15 Auto Granulo -21-2 8.6 1.8-7.8 complet cytes # 013 K/mm3 ed Bld 06:15 Auto Lymphoc -21-2 0.7 0.7-4.5 complet ytes Fr 013 K/mm3 ed Bld 06:15 Auto Monocyt -21-2 0.2 0.1-1.0 complet es # 013 K/mm3 ed Bld 06:15 Auto Eosinop -21-2 0.0 0.0-0.4 complet hil # 013 K/mm3 ed Bld 06:15 Auto Basophi 09-21-2 0.0 0-0.2 complet ls # 013 K/MM3 ed Bld 06:15 Auto COMPREHENSIVE METABOLIC PANEL (03-06-2013 14:15) Glucose 03-06- 89 74-106 complet 013 mg/dL ed Bld-mCn 14:15 c BUN 03-06- 23 7-18 complet Bld-mCn 013 mg/dL ed c 14:15 Creat 03-06-2 1.3 0.6-1.0 complet SerPl-m 013 mg/dL ed Cnc 14:15 ESTIMAT 03-06-2 77 50-200 complet ED 013 ML/MIN ed CREATIN 14:15 INE CLEARAN CE GFR 41 59- complet (ESTIMA 013 ML/MIN ed SUDHIR) 14:15 Sodium 03-06- 139 136-145 complet SerPl-s 013 mmoL/L ed Cnc 14:15 Potassi 03-06- 3.4 3.5-5.1 complet um 013 mmoL/L ed SerPl-s 14:15 Cnc Chlorid 98 98-107 complet e 013 mmoL/L ed SerPl-s 14:15 Cnc CO2 35 21.0-32 complet SerPl-s 013 mmoL/L .0 ed Cnc 14:15 Calcium 03-06- 9.3 8.5-10. complet 013 mg/dL 1 ed SerPl-m 14:15 Cnc Prot 7.4 6.4-8.2 complet SerPl-m 013 gm/dL ed Cnc 14:15 Albumin 3.4 3.4-5.0 complet 013 gm/dL ed SerPl-m 14:15 Cnc Globuli 4.0 1.3-3.2 complet n 013 gm/dL ed Ser-mCn 14:15 c Albumin 0.9 UNK 1.1-1.8 complet /Glob 013 ed SerPl-m 14:15 Rto Bilirub 0.5 0.2-1.0 complet 013 mg/dL ed SerPl-m 14:15 Cnc AST 26 U/L 15-37 complet SerPl-c 013 ed Cnc 14:15 ALT 03-06- 48 U/L 30-65 complet SerPl-c 013 ed Cnc 14:15 ALP 03-06- 178 U/L 50-136 complet SerPl-c 013 ed Cnc 14:15 CBC with AUTO DIFF (03-06-2013 14:15) WBC # 20-2 13.1 4.8-10. complet Bld 013 K/MM3 8 ed Auto 14:15 RBC # 03-06-2 4.08 4.2-5.4 complet Bld 013 M/mm3 ed Auto 14:15 Hgb 03-06-2 12.7 12.2-16 complet Bld-mCn 013 g/dL .2 ed c 14:15 Hct Fr 03-06-2 38.5 % 37.0-47 complet Bld 013 .0 ed 14:15 MCV RBC 20-2 94.3 fl 82.2-97 complet 013 .8 ed 14:15 MCH RBC 20-2 31.0 pg 27-31.2 complet Qn 013 ed Auto 14:15 MEAN 03-06-2 32.9 31.8-35 complet CORPUSC 013 g/dl .4 ed ULAR 14:15 HGB CONC RDW RBC 20-2 16.4 % 11.5-17 complet Auto 013 .5 ed 14:15 Platele 20-2 303 142-424 complet t Bld 013 K/mm3 ed Ql 14:15 Manual MEAN 7.7 fl 7.4-10. complet PLATELE 013 4 ed T 14:15 VOLUME Granulo 20-2 77.2 % 37.0-80 complet cytes 013 .0 ed Fr Bld 14:15 Auto LYMPH % 20-2 15.2 % 10-50.0 complet 013 ed 14:15 Monocyt -20-2 6.6 % 1.7-9.3 complet es Fr 013 ed Bld 14:15 Auto Eosinop -20-2 0.7 % 0.1-12. complet hil Fr 013 0 ed Bld 14:15 Auto Basophi -20-2 0.4 % 0.1-2.0 complet ls Fr 013 ed Bld 14:15 Auto Granulo -20-2 10.1 1.8-7.8 complet cytes # 013 K/mm3 ed Bld 14:15 Auto Lymphoc -20-2 2.0 0.7-4.5 complet ytes Fr 013 K/mm3 ed Bld 14:15 Auto Monocyt 09-20-2 0.9 0.1-1.0 complet es # 013 K/mm3 ed Bld 14:15 Auto Eosinop -20-2 0.1 0.0-0.4 complet hil # 013 K/mm3 ed Bld 14:15 Auto Basophi 09-20-2 0.1 0-0.2 complet ls # 013 K/MM3 ed Bld 14:15 Auto URINALYSIS/COMPLETE (03-06-2013 14:08) URINE 20-2 YELLOW YELLOW complet COLOR 013 ed 14:08 URINE -20-2 CLEAR CLEAR complet APPEARA 013 ed NCE 14:08 URINE -20-2 NEGATIV NEG complet GLUCOSE 013 E ed - 14:08 DIPSTIC K URINE -20-2 NEGATIV NEG complet BILIRUB 013 E ed IN - 14:08 DIPSTIC K URINE -20-2 NEGATIV NEG complet KETONE 013 E mg/dL ed 14:08 URINE -20-2 1.010 1.005-1 complet SPECIFI 013 UNK .030 ed C 14:08 GRAVITY URINE 20-2 NEGATIV NEG complet BLOOD 013 E ed 14:08 URINE 20-2 7.0 UNK 5.0-8.5 complet PH 013 ed 14:08 URINE 20-2 NEGATIV NEG complet PROTEIN 013 E mg/dL ed - 14:08 DIPSTIC K URINE -20-2 0.2 NEG complet UROBILI 013 E.U./dL ed NOGEN - 14:08 DIPSTIC K URINE -20-2 NEGATIV NEG complet NITRATE 013 E ed - 14:08 DIPSTIC K URINE -20-2 NEGATIV NEG complet LEUK 013 E ed ESTERAS 14:08 E URINE 20-2 OCC 0-5 complet SQUAMOU 013 #/hpf ed S CELLS 14:08 URINE 20-2 3+ O complet BACTERI 013 ed A 14:08 BASIC METABOLIC PANEL (10-31-2012 06:35) Glucose 17-2 91 74-106 complet 013 mg/dL ed Bld-mCn 06:35 c BUN 10-31-2 6 mg/dL 7-18 complet Bld-mCn 013 ed c 06:35 Creat 17-2 0.8 0.6-1.0 complet SerPl-m 013 mg/dL ed Cnc 06:35 ESTIMAT -17-2 116 50-200 complet ED 013 ML/MIN ed CREATIN 06:35 INE CLEARAN CE GFR 17-2 72 59- complet (ESTIMA 013 ML/MIN ed SUDHIR) 06:35 Sodium -17-2 135 136-145 complet SerPl-s 013 mmoL/L ed Cnc 06:35 Potassi 10-31-2 3.4 3.5-5.1 complet um 013 mmoL/L ed SerPl-s 06:35 Cnc Chlorid 05-17-2 102 98-107 complet e 013 mmoL/L ed SerPl-s 06:35 Cnc CO2 05-17-2 27 21.0-32 complet SerPl-s 013 mmoL/L .0 ed Cnc 06:35 Calcium 05-17-2 8.1 8.5-10. complet 013 mg/dL 1 ed SerPl-m 06:35 Cnc CBC with AUTO DIFF (10-31-2012 06:35) WBC # 05-17-2 5.7 4.8-10. complet Bld 013 K/MM3 8 ed Auto 06:35 RBC # 05-17-2 3.69 4.2-5.4 complet Bld 013 M/mm3 ed Auto 06:35 Hgb 05-17-2 11.5 12.2-16 complet Bld-mCn 013 g/dL .2 ed c 06:35 Hct Fr 05-17-2 35.3 % 37.0-47 complet Bld 013 .0 ed 06:35 MCV RBC 05-17-2 95.7 fl 82.2-97 complet 013 .8 ed 06:35 MCH RBC 05-17-2 31.1 pg 27-31.2 complet Qn 013 ed Auto 06:35 MEAN 05-17-2 32.5 31.8-35 complet CORPUSC 013 g/dl .4 ed ULAR 06:35 HGB CONC RDW RBC 05-17-2 17.2 % 11.5-17 complet Auto 013 .5 ed 06:35 Platele 05-17-2 247 142-424 complet t Bld 013 K/mm3 ed Ql 06:35 Manual MEAN 05-17-2 7.8 fl 7.4-10. complet PLATELE 013 4 ed T 06:35 VOLUME Granulo 05-17-2 82.0 % 37.0-80 complet cytes 013 .0 ed Fr Bld 06:35 Auto LYMPH % 05-17-2 9.5 % 10-50.0 complet 013 ed 06:35 Monocyt 05-17-2 7.4 % 1.7-9.3 complet es Fr 013 ed Bld 06:35 Auto Eosinop 05-17-2 0.9 % 0.1-12. complet hil Fr 013 0 ed Bld 06:35 Auto Basophi 05-17-2 0.2 % 0.1-2.0 complet ls Fr 013 ed Bld 06:35 Auto Granulo 05-17-2 4.7 1.8-7.8 complet cytes # 013 K/mm3 ed Bld 06:35 Auto Lymphoc 05-17-2 0.5 0.7-4.5 complet ytes Fr 013 K/mm3 ed Bld 06:35 Auto Monocyt 05-17-2 0.4 0.1-1.0 complet es # 013 K/mm3 ed Bld 06:35 Auto Eosinop 05-17-2 0.1 0.0-0.4 complet hil # 013 K/mm3 ed Bld 06:35 Auto Basophi 05-17-2 0.0 0-0.2 complet ls # 013 K/MM3 ed Bld 06:35 Auto C dif Tox A+B Stl Ql (10-31-2012 02:55) C dif 05-17-2 NOT NOT complet Tox A+B 013 DETECTE DETECTE ed Stl Ql 02:55 D C dif Tox A+B Stl Ql (10-30-2012 17:10) C dif 05-16-2 NOT NOT complet Tox A+B 013 DETECTE DETECTE ed Stl Ql 17:10 D URINALYSIS/COMPLETE (10-30-2012 07:15) URINE 05-16-2 YELLOW YELLOW complet COLOR 013 ed 07:15 URINE 05-16-2 CLEAR CLEAR complet APPEARA 013 ed NCE 07:15 URINE 05-16-2 NEGATIV NEG complet GLUCOSE 013 E ed - 07:15 DIPSTIC K URINE 05-16-2 NEGATIV NEG complet BILIRUB 013 E ed IN - 07:15 DIPSTIC K URINE 05-16-2 NEGATIV NEG complet KETONE 013 E mg/dL ed 07:15 URINE 05-16-2 1.010 1.005-1 complet SPECIFI 013 UNK .030 ed C 07:15 GRAVITY URINE 05-16-2 NEGATIV NEG complet BLOOD 013 E ed 07:15 URINE 05-16-2 8.5 UNK 5.0-8.5 complet PH 013 ed 07:15 URINE 05-16-2 NEGATIV NEG complet PROTEIN 013 E mg/dL ed - 07:15 DIPSTIC K URINE 05-16-2 0.2 NEG complet UROBILI 013 E.U./dL ed NOGEN - 07:15 DIPSTIC K URINE NEGATIV NEG complet NITRATE 013 E ed - 07:15 DIPSTIC K URINE NEGATIV NEG complet LEUK 013 E ed ESTERAS 07:15 E URINE OCC 0 complet RBC 013 rbc/hpf ed 07:15 URINE 3-5 O complet WBC 013 wbc/hpf ed 07:15 URINE 3-5 0-5 complet SQUAMOU 013 #/hpf ed S CELLS 07:15 COMPREHENSIVE METABOLIC PANEL (10-30-2012 05:00) Glucose 103 74-106 complet 013 mg/dL ed Bld-mCn 05:00 c BUN 14 7-18 complet Bld-mCn 013 mg/dL ed c 05:00 Creat 0.8 0.6-1.0 complet SerPl-m 013 mg/dL ed Cnc 05:00 ESTIMAT 118 50-200 complet ED 013 ML/MIN ed CREATIN 05:00 INE CLEARAN CE GFR 72 59- complet (ESTIMA 013 ML/MIN ed SUDHIR) 05:00 Sodium 132 136-145 complet SerPl-s 013 mmoL/L ed Cnc 05:00 Potassi 4.5 3.5-5.1 complet um 013 mmoL/L ed SerPl-s 05:00 Cnc Chlorid 95 98-107 complet e 013 mmoL/L ed SerPl-s 05:00 Cnc CO2 25 21.0-32 complet SerPl-s 013 mmoL/L .0 ed Cnc 05:00 Calcium 8.7 8.5-10. complet 013 mg/dL 1 ed SerPl-m 05:00 Cnc Prot 6.7 6.4-8.2 complet SerPl-m 013 gm/dL ed Cnc 05:00 Albumin 3.4 3.4-5.0 complet 013 gm/dL ed SerPl-m 05:00 Cnc Globuli 3.3 1.3-3.2 complet n 013 gm/dL ed Ser-mCn 05:00 c Albumin -16-2 1.0 UNK 1.1-1.8 complet /Glob 013 ed SerPl-m 05:00 Rto Bilirub 10-30-2 0.7 0.2-1.0 complet 013 mg/dL ed SerPl-m 05:00 Cnc AST 16-2 112 U/L 15-37 complet SerPl-c 013 ed Cnc 05:00 ALT -16-2 156 U/L 30-65 complet SerPl-c 013 ed Cnc 05:00 ALP -16-2 188 U/L 50-136 complet SerPl-c 013 ed Cnc 05:00 Amylase SerPl-cCnc (10-30-2012 05:00) Amylase -16-2 37 U/L 25-115 complet 013 ed SerPl-c 05:00 Cnc LIPASE (10-30-2012 05:00) LIPASE -16-2 156 U/L 73-393 complet 013 ed 05:00 C dif Tox A+B Stl Ql (10-30-2012 04:45) C dif 10-30-2 NOT NOT complet Tox A+B 013 DETECTE DETECTE ed Stl Ql 04:45 D CBC with AUTO DIFF (10-30-2012 04:00) WBC # -16-2 11.4 4.8-10. complet Bld 013 K/MM3 8 ed Auto 04:00 RBC # -16-2 4.59 4.2-5.4 complet Bld 013 M/mm3 ed Auto 04:00 Hgb -16-2 14.5 12.2-16 complet Bld-mCn 013 g/dL .2 ed c 04:00 Hct Fr -16-2 44.0 % 37.0-47 complet Bld 013 .0 ed 04:00 MCV RBC -16-2 95.9 fl 82.2-97 complet 013 .8 ed 04:00 MCH RBC -16-2 31.6 pg 27-31.2 complet Qn 013 ed Auto 04:00 MEAN -16-2 33.0 31.8-35 complet CORPUSC 013 g/dl .4 ed ULAR 04:00 HGB CONC RDW RBC -16-2 17.1 % 11.5-17 complet Auto 013 .5 ed 04:00 Platele 05-16-2 360 142-424 complet t Bld 013 K/mm3 ed Ql 04:00 Manual MEAN 10-30- 8.4 fl 7.4-10. complet PLATELE 013 4 ed T 04:00 VOLUME Granulo -16-2 88.3 % 37.0-80 complet cytes 013 .0 ed Fr Bld 04:00 Auto LYMPH % -16-2 5.6 % 10-50.0 complet 013 ed 04:00 Monocyt -16-2 4.3 % 1.7-9.3 complet es Fr 013 ed Bld 04:00 Auto Eosinop -16-2 1.6 % 0.1-12. complet hil Fr 013 0 ed Bld 04:00 Auto Basophi -16-2 0.2 % 0.1-2.0 complet ls Fr 013 ed Bld 04:00 Auto Granulo -16-2 10.1 1.8-7.8 complet cytes # 013 K/mm3 ed Bld 04:00 Auto Lymphoc -16-2 0.6 0.7-4.5 complet ytes Fr 013 K/mm3 ed Bld 04:00 Auto Monocyt -16-2 0.5 0.1-1.0 complet es # 013 K/mm3 ed Bld 04:00 Auto Eosinop -16-2 0.2 0.0-0.4 complet hil # 013 K/mm3 ed Bld 04:00 Auto Basophi -16-2 0.0 0-0.2 complet ls # 013 K/MM3 ed Bld 04:00 Auto COMPREHENSIVE METABOLIC PANEL (10-18-2012 13:45) Glucose 91 74-106 complet 013 mg/dL ed Bld-mCn 13:45 c BUN 12 7-18 complet Bld-mCn 013 mg/dL ed c 13:45 Creat 1.1 0.6-1.0 complet SerPl-m 013 mg/dL ed Cnc 13:45 ESTIMAT 87 50-200 complet ED 013 ML/MIN ed CREATIN 13:45 INE CLEARAN CE GFR 50 59- complet (ESTIMA 013 ML/MIN ed SUDHIR) 13:45 Sodium 132 136-145 complet SerPl-s 013 mmoL/L ed Cnc 13:45 Potassi 05-04-2 4.1 3.5-5.1 complet um 013 mmoL/L ed SerPl-s 13:45 Cnc Chlorid 05-04-2 94 98-107 complet e 013 mmoL/L ed SerPl-s 13:45 Cnc CO2 05-04-2 34 21.0-32 complet SerPl-s 013 mmoL/L .0 ed Cnc 13:45 Calcium 05-04-2 9.0 8.5-10. complet 013 mg/dL 1 ed SerPl-m 13:45 Cnc Prot 05-04-2 6.8 6.4-8.2 complet SerPl-m 013 gm/dL ed Cnc 13:45 Albumin 05-04-2 3.2 3.4-5.0 complet 013 gm/dL ed SerPl-m 13:45 Cnc Globuli 05-04-2 3.6 1.3-3.2 complet n 013 gm/dL ed Ser-mCn 13:45 c Albumin 05-04-2 0.9 UNK 1.1-1.8 complet /Glob 013 ed SerPl-m 13:45 Rto Bilirub 05-04-2 0.5 0.2-1.0 complet 013 mg/dL ed SerPl-m 13:45 Cnc AST 05-04-2 83 U/L 15-37 complet SerPl-c 013 ed Cnc 13:45 ALT 05-04-2 108 U/L 30-65 complet SerPl-c 013 ed Cnc 13:45 ALP 05-04-2 189 U/L 50-136 complet SerPl-c 013 ed Cnc 13:45 CBC with AUTO DIFF (10-18-2012 13:45) WBC # 05-04-2 4.9 4.8-10. complet Bld 013 K/MM3 8 ed Auto 13:45 RBC # 05-04-2 4.17 4.2-5.4 complet Bld 013 M/mm3 ed Auto 13:45 Hgb 05-04-2 13.2 12.2-16 complet Bld-mCn 013 g/dL .2 ed c 13:45 Hct Fr 05-04-2 39.7 % 37.0-47 complet Bld 013 .0 ed 13:45 MCV RBC 05-04-2 95.2 fl 82.2-97 complet 013 .8 ed 13:45 MCH RBC 05-04-2 31.7 pg 27-31.2 complet Qn 013 ed Auto 13:45 MEAN 05-04-2 33.3 31.8-35 complet CORPUSC 013 g/dl .4 ed ULAR 13:45 HGB CONC RDW RBC 05-04-2 17.2 % 11.5-17 complet Auto 013 .5 ed 13:45 Platele 05-04-2 255 142-424 complet t Bld 013 K/mm3 ed Ql 13:45 Manual MEAN 05-04-2 7.5 fl 7.4-10. complet PLATELE 013 4 ed T 13:45 VOLUME Granulo 05-04-2 73.8 % 37.0-80 complet cytes 013 .0 ed Fr Bld 13:45 Auto LYMPH % 05-04-2 15.1 % 10-50.0 complet 013 ed 13:45 Monocyt 05-04-2 8.2 % 1.7-9.3 complet es Fr 013 ed Bld 13:45 Auto Eosinop 05-04-2 2.5 % 0.1-12. complet hil Fr 013 0 ed Bld 13:45 Auto Basophi 05-04-2 0.3 % 0.1-2.0 complet ls Fr 013 ed Bld 13:45 Auto Granulo 05-04-2 3.6 1.8-7.8 complet cytes # 013 K/mm3 ed Bld 13:45 Auto Lymphoc 05-04-2 0.7 0.7-4.5 complet ytes Fr 013 K/mm3 ed Bld 13:45 Auto Monocyt 05-04-2 0.4 0.1-1.0 complet es # 013 K/mm3 ed Bld 13:45 Auto Eosinop 05-04-2 0.1 0.0-0.4 complet hil # 013 K/mm3 ed Bld 13:45 Auto Basophi 05-04-2 0.0 0-0.2 complet ls # 013 K/MM3 ed Bld 13:45 Auto Encounters Encounter Start End Date Code Location Performer Type Date Inpatient [place]ENTE Marsh MD ([place]) 3 09:45 3 15:00 [facility] Inpatient [place]ENTE ACEVEDO ([place]) 3 14:06 3 11:35 [facility] Inpatient CHENTE Dickerson MD ([place]) 3 03:52 3 15:53 [facility] Inpatient CHENTE Noriega ([place]) 3 12:31 3 10:30 [facility]
--- OUTSIDE RECORDS SUMMARY | 2017-03-27 05:24 | External Medical Summary Rpt ---
Author Author , NITHYA BARRIGA Address Unknown Phone [email or web address] Care Team Providers Care [employer] Installer Name Role Phone [facility] Unavailable Unavailable [facility], Psychiatric Mor Marsh MD, Unavailable Unavailable Mor Noriega MD, Unavailable Unavailable Juana Noriega MD Purpose Continuity of Care Document - 10-18-2012 through 2016 Problems Code Diagnosis DOS Provider Status 276.51 Dehydration 04-22-2013 Psychiatric [id number] Arthritis 04-22-2013 [facility] 780.97 Altered 04-22-2013 [facility] 805.4 Compression 04-22-2013 [place] fracture [facility] lumbar [facility] spine [id number] Lumbar disc [facility] radiculopat hy [id number] Orthostatic [facility] 558.9 Gastroenter [facility] 781.3 Ataxia Psychiatric 787.03 Vomiting Psychiatric Allergies, Adverse Reactions, Alerts Type Drug Allergy [...] er -A 2 CE Ac TA ti MT ve NO PH N 10 -3 25 AM 51 11 1 No LO 07 -0 DI 90 7- Lo PI 45 20 ng NE 12 13 er 0 BE Ac SY ti LA ve TE 5 MG TA B BI 00 11 1 No SO 18 -0 OR 50 7- Lo OL 77 20 ng [...] RO 07 -0 SE 90 7- Lo MT 07 20 ng DE 32 13 er 0 40 Ac ti MG ve TA BL ET Ga 68 11 1 No ba 08 -0 pe 40 7- Lo nt 08 20 ng in 00 13 er 1 30 Ac 0M ti G ve Ca ps ul e OR 00 11 1 No ED 05 -0 [...] er -A 2 CE Ac TA ti MT ve NO PH 7. 5- 32 5 [...] 00 09 3 No SO 18 -2 OR 50 1- Lo OL 77 20 ng OL 13 13 er 0 FU Ac MA ti RA ve TE 5 MG TA B FU 51 09 3 No RO 07 -2 SE 90 1- Lo MT 07 20 ng DE 32 13 er [...] ti IC ve OI NT ME NT OR 00 09 3 No ED 05 -2 [...] er -A 2 CE Ac TA ti MT ve NO PH 7. 5- 32 5 [...] TA 20 -2 NO 80 0- Lo OR 46 20 ng OS 32 13 er [...] ti G ve Ca ps ul e OR 00 05 1 No ED 05 -1 NI 40 6- Lo SO 01 20 ng NE 72 13 er 0 10 Ac ti MG ve TA BL ET BI 00 05 1 No SO 18 -1 OR 50 6- Lo OL 77 20 ng [...] Ac G ti Ta ve bl et OR 00 05 1 No OT 00 -0 ON 80 5- Lo IX 84 20 ng [address] 9 Ac 40 ti ve MG TA BL ET OR 00 05 1 No ED 05 -0 [...] 00 05 1 No SO 18 -0 OR 50 5- Lo OL 77 20 ng [...] er -A 2 CE Ac TA ti MT ve NO PH N 10 -3 25 [...] Marsh MD ([place]) 3 09:45 3 15:00 [facility] Inpatient CHENTE ACEVEDO ([place]) 3 14:06 3 11:35 [facility] Inpatient CHENTE Dickerson MD ([place]) 3 03:52 3 15:53 [facility] Inpatient CHENTE Noriega ([place]) 3 12:31 3 10:30 [facility]
--- OUTSIDE RECORDS SUMMARY | 2017-03-27 05:25 | External Medical Summary Rpt ---
Author Author [employer] Organization [employer] Address Unknown Phone Unavailable Purpose Continuity of Care Document - through 2016
--- OUTSIDE RECORDS SUMMARY | 2017-03-27 05:25 | External Medical Summary Rpt ---
Author Author , NITHYA BARRIGA Address Unknown Phone [email or web address] [email or web address] Name Date Rout CVX Reac Dose Comm Prov Is Faci e tion ent ider Refu lity Give sed n PPV2 10-0 33 0.5 Hist PD20 No PD20 3 5-20 mL oric 255 255 17 al Info rmat ion - Sour ce Unsp ecif ied Infl 10-0 Intr 0.5 Hist PD20 No PD20 uenz 5-20 amus mL oric 255 255 a 17 cula al Quad r Info rmat W/Pr ion es - Sour ce Unsp ecif ied Td 03-0 Intr 9 999 Hist H149 No H149 (simba 5-19 amus oric lt), 97 cula al r Info adso rmat rbed ion - Sour ce Unsp ecif ied
--- OUTSIDE RECORDS SUMMARY | 2017-03-27 05:25 | External Medical Summary Rpt ---
Author Author , NITHYA BARRIGA Address Unknown Phone [email or web address] [email or web address] Name Date Rout CVX Reac Dose [...]
--- OUTSIDE RECORDS SUMMARY | 2017-03-27 05:25 | External Medical Summary Rpt ---
Author Author [employer], [employer] Organization [employer] Address Unknown Phone Unavailable Results Creatinine [Mass/volume] in Urine Observa Value Referen Units Interpr Notes Date tion ce etation Range Creatinin 20 - 320 mg/dL Normal No Feb 04 e informati 2016 [Mass/vol on in 12:01 PM ume] in source Urine data Ammonia [Mass/volume] in Unspecified specimen Observa Value Referen Units Interpr Notes Date tion ce etation Range Ammonia 19 - 54 umoL/L Low No Feb 01 [Mass/vol informati 2016 ume] in on in 10:39 AM Unspecifi source ed data specimen INR in Blood by Coagulation assay Observa Value Referen Units Interpr Notes Date tion ce etation Range INR in 0.9 - 1.1 No Normal INDICATIO Feb 01 Blood by informati N 2017 Coagulati on in 10:39 AM on assay source INR data RANGETHER APY FOR DVT, PE, ATRIAL FIB; 2.0 - 3.0PROPHY LAXIS FOR VTETHERAP Y FOR MECHANICA L HEART 2.5 - 3.5VALVE; PREVENTIO N OF SYSTEMICE MBOLISM SECONDARY TO AMI Prothromb 9.4 - SECONDS Normal No Feb 01 in time 11.8 informati 2016 (PT) in on in 10:39 AM Platelet source poor data plasma by Coagulati on assay Comprehensive metabolic 2000 panel in Serum or Plasma Observa Value Referen Units Interpr Notes Date tion ce etation Range Albumin/G 1.1 - 1.8 No Low No Feb 01 lobulin informati informati 2016 [Mass on in on in 10:37 AM ratio] in source source Serum or data data Plasma Albumin 3.4 - 5.0 gm/dL Normal No Feb 01 [Mass/vol informati 2016 ume] in on in 10:37 AM Serum or source Plasma data Alkaline 46 - 116 U/L High No Feb 01 phosphata informati 2016 se on in 10:37 AM [Enzymati source c data activity/ volume] in Serum or Plasma Bilirubin 0.2 - 1.0 mg/dL Normal No Feb 01 .total informati 2016 [Mass/vol on in 10:37 AM ume] in source Serum or data Plasma Urea 7 - 18 mg/dL Normal No Feb 01 nitrogen informati 2016 [Mass/vol on in 10:37 AM ume] in source Serum or data Plasma Calcium 8.5 - mg/dL Normal No Feb 01 [Mass/vol 10.1 informati 2016 ume] in on in 10:37 AM Serum or source Plasma data Chloride 98 - 107 mmoL/L Low No Feb 01 [Moles/vo informati 2017 lume] in on in 10:37 AM Serum or source Plasma data Carbon 21.0 - mmoL/L Normal No Feb 01 dioxide, 32.0 informati 2016 total on in 10:37 AM [Moles/vo source lume] in data Serum or Plasma Creatinin 0.55 - mg/dL Normal No Feb 01 e 1.02 informati 2016 [Mass/vol on in 10:37 AM ume] in source Serum or data Plasma Estimated 59- ML/MIN Low REFERENCE Feb 01 RANGE: 2017 glomerula >60 10:37 AM r ML/MIN/1. filtratio 73 SQUARE n rate METERSIf (GF this patient is -A merican, then multiply theresult by 1.210. Globulin 1.3 - 3.2 gm/dL High No Feb 01 [Mass/vol informati 2017 ume] in on in 10:37 AM Serum source data Glucose 74 - 106 mg/dL Low No Feb 01 [Mass/vol informati 2016 ume] in on in 10:37 AM Serum or source Plasma data Potassium 3.5 - 5.1 mmoL/L Normal No Feb 01 inform2016 [Moles/vo on in 10:37 AM lume] in source Serum or data Plasma Sodium 136 - 145 mmoL/L Low No Feb 01 [Moles/vo informati 2017 lume] in on in 10:37 AM Serum or source Plasma data Aspartate 15 - 37 U/L Normal No Feb 012016 aminotran on in 10:37 AM sferase source [Enzymati data c activity/ volume] in Serum or Plasma Alanine 12 - 78 U/L Normal No Feb 01 aminotran inform2016 sferase on in 10:37 AM [Enzymati source c data activity/ volume] in Serum or Plasma Protein 6.4 - 8.2 gm/dL Normal No Jan 18 [Mass/vol inform2016 ume] in on in 10:37 AM Serum or source Plasma data Lipid 1996 panel in Serum or Plasma Observa Value Referen Units Interpr Notes Date tion ce etation Range Cholester < 200 mg/dL No No Jan 18 ol ati 2016 [Moles/vo on in on in 10:37 AM lume] in source source Unspecifi data data ed specimen Cholester 40 - 60 MG/DL High No Feb 01 ol in HDL 2016 on in 10:37 AM [Mass/vol source ume] in data Serum or Plasma Cholester 0 - 130 mg/dL Normal No Feb 01 ol in LDL 2016 on in 10:37 AM [Mass/vol source ume] in data Serum or Plasma by calculati on Triglycer 30 - 200 mg/dL Normal No Feb 01 mary 2016 [Moles/vo on in 10:37 AM lume] in source Serum or data Plasma Cholester 0 - 40 No Normal No Feb 01 ol in 2016 VLDL on in on in 10:37 AM [Mass/vol source source ume] in data data Serum or Plasma Thyrotropin [Units/volume] in Serum or Plasma Observa Value Referen Units Interpr Notes Date tion ce etation Range Thyrotrop 0.358 - uIU/ml No No Jan 18 in 3.740 2016 [Units/vo on in on in 10:37 AM lume] in source source Serum or data data Plasma CBC W Auto Differential panel in Blood Observa Value Referen Units Interpr Notes Date tion ce etation Range Basophils 0 - 0.2 K/MM3 Normal No Feb 012016 [#/volume on in 10:37 AM ] in source Blood by data Automated count Basophils 0.1 - 2.0 % Normal No Jan 18 /100 2016 leukocyte on in 10:37 AM s in source Blood by data Automated count Eosinophi 0.0 - 0.4 K/mm3 Normal No Jan 18 ls 2016 [#/volume on in 10:37 AM ] in source Blood by data Automated count Eosinophi 0.1 - % Normal No Feb 01 ls/100 12.0 2016 leukocyte on in 10:37 AM s in source Blood by data Automated count Granulocy 1.8 - 7.8 K/mm3 Normal No Feb 01 virgilio inform2016 [#/volume on in 10:37 AM ] in source Blood by data Automated count Granulocy 37.0 - % Normal No Feb 01 virgilio/100 80.0 2016 leukocyte on in 10:37 AM s in source Blood by data Automated count Hematocri 37.0 - % Low No Feb 01 t [Volume 47.0 informati 2016 on in 10:37 AM Fraction] source of Blood data Hemoglobi 12.2 - g/dL Normal No Feb 01 n 16.2 informati 2016 [Mass/vol on in 10:37 AM ume] in source Blood data Lymphocyt 0.7 - 4.5 K/mm3 Normal No Feb 01 es inform2016 [#/volume on in 10:37 AM ] in source Unspecifi data ed specimen by Automated count Lymphocyt 10 - 50.0 % Normal No Feb 01 es 2016 [#/volume on in 10:37 AM ] in source Unspecifi data ed specimen by Automated count Erythrocy 27 - 31.2 pg High No Feb 01 te mean 2016 corpuscul on in 10:37 AM ar source hemoglobi data n [Entitic mass] Erythrocy 31.8 - g/dl Normal No Feb 01 te mean 35.4 2016 corpuscul on in 10:37 AM ar source hemoglobi data n concentra tion [Mass/vol ume] by Automated count Erythrocy 82.2 - fl Normal No Feb 01 te mean 97.8 2016 corpuscul on in 10:37 AM ar volume source [Entitic data volume] by Automated count Monocytes 0.1 - 1.0 K/mm3 Normal No Feb 012016 [#/volume on in 10:37 AM ] in source Blood by data Automated count Monocytes 1.7 - 9.3 % Normal No Feb 01 /100 inform2016 leukocyte on in 10:37 AM s in source Blood by data Automated count Platelet 7.4 - fl Normal No Feb 01 mean 10.4 2016 volume on in 10:37 AM [Entitic source volume] data in Blood by Automated count Platelets 142 - 424 K/mm3 Normal No Feb 01 inform2016 [#/volume on in 10:37 AM ] in source Blood data Erythrocy 4.2 - 5.4 M/mm3 Low No Feb 01 virgilio 2016 [#/volume on in 10:37 AM ] in source Amniotic data fluid Erythrocy 11.5 - % Normal No Feb 01 te 17.5 informati 2017 distribut on in 10:37 AM ion width source [Entitic data volume] by Automated count Leukocyte 4.8 - K/MM3 Normal No Feb 01 s 10.8 informati 2016 [#/volume on in 10:37 AM ] in source Blood data Alk Phosphatase, Bone Specific Observa Value Referen Units Interpr Notes Date tion ce etation Range Alkaline . ug/L No Premenopa Feb 01 phosphata informati usal 2017 se.bone on in Women: 10:27 AM [Mass/vol source ume] in data 6.0 - Serum or 22.7Postm Plasma enopausal Women: 8.1 - 31.6Perfo rmed at: [address] [id number] Hospitality Intern: Guillermo Simms MD, Phone: [phone] Collagen crosslinked N-telopeptide [Moles/volume] in Serum Observa Value Referen Units Interpr Notes Date tion ce etation Range Collagen 6.2 - No High INFCE Feb 01 crosslink 19.0 informati Result 2017 ed on in Units: 10:27 AM N-telopep source nmol tide data BCE/LPerf [Moles/vo ormed at: lume] in - Serum Lab[address] [id number] Hospitality Intern: Guillermo Simms MD, Phone: [phone] Osteocalcin [Mass/volume] in Serum or Plasma Observa Value Referen Units Interpr Notes Date tion ce etation Range Osteocalc . ng/mL No Pre-menop Feb 01 in informati ausal 2017 [Mass/vol on in Women 10:27 AM ume] in source 4.9 - Serum or data 30.9Post- Plasma menopausa l Women 9.4 - 47.4Perfo rmed at: [address] [id number] Hospitality Intern: Guillermo Simms MD, Phone: [phone] 25-Hydroxyvitamin D [Mass/volume] in Serum or Plasma Observa Value Referen Units Interpr Notes Date tion ce etation Range 25-Hydrox 30.0 - ng/mL No Vitamin D Feb 01 yvitamin 100.0 informati 2017 D on in deficienc 10:27 AM [Mass/vol source y has ume] in data been Serum or defined Plasma by the [place] [facility] e and an Endocrine Society practice guideline as alevel of serum 25-OH vitamin D less than 20 ng/mL (1,2).The Endocrine Society went on to further define vitamin Dinsuffic iency as a level between 21 and 29 ng/mL (2).1. IOM (Institut e of Medicine) . 2010. Dietary reference intakes for calcium and D. [place]: [employer].2. Julius MF, [place], Howie Petit DIMAS, et al.Evalua tion, treatment , and preventio n of vitamin Ddeficien cy: an Endocrine Society clinical practiceg uideline. JCEM. 2010; 96(7):191 1-30.Perf ormed at: [facility] - [facility] [place] [address] [address] [place] [id number] Hospitality Intern: Aris Hernandez PhD, Phone: [phone] Renal function 2000 panel in Serum or Plasma Observa Value Referen Units Interpr Notes Date tion ce etation Range Albumin 3.4 - 5.0 gm/dL Normal No Feb 01 [Mass/vol informati 2016 ume] in on in 10:27 AM Serum or source Plasma data Urea 7 - 18 mg/dL Normal No Feb 01 nitrogen inform2016 [Mass/vol on in 10:27 AM ume] in source Serum or data Plasma Calcium 8.5 - mg/dL Normal No Feb 01 [Mass/vol 10.1 informati 2016 ume] in on in 10:27 AM Serum or source Plasma data Chloride 98 - 107 mmoL/L Low No Feb 01 [Moles/vo informati 2017 lume] in on in 10:27 AM Serum or source Plasma data Carbon 21.0 - mmoL/L Normal No Feb 01 dioxide, 32.0 informati 2017 total on in 10:27 AM [Moles/vo source lume] in data Serum or Plasma Creatinin 0.55 - mg/dL High No Feb 01 e 1.02 informati 2016 [Mass/vol on in 10:27 AM ume] in source Serum or data Plasma Estimated 59- ML/MIN Low REFERENCE Feb 01 RANGE: 2017 glomerula >60 10:27 AM r ML/MIN/1. filtratio 73 SQUARE n rate METERSIf (GF this patient is -A merican, then multiply theresult by 1.210. Glucose 74 - 106 mg/dL Low No Feb 01 [Mass/vol informati 2016 ume] in on in 10:27 AM Serum or source Plasma data Potassium 3.5 - 5.1 mmoL/L Normal No Feb 01 inform2016 [Moles/vo on in 10:27 AM lume] in source Serum or data Plasma Sodium 136 - 145 mmoL/L Low No Feb 01 [Moles/vo informati 2016 lume] in on in 10:27 AM Serum or source Plasma data Phosphate 2.4 - 4.9 mg/dL Normal No Feb 01 inform2016 [Moles/vo on in 10:27 AM lume] in source Unspecifi data ed specimen Comprehensive metabolic 2000 panel in Serum or Plasma Observa Value Referen Units Interpr Notes Date tion ce etation Range Albumin/G 1.1 - 1.8 No Low No November 09 lobulin informati informati 2016 2:49 [Mass on in on in PM ratio] in source source Serum or data data Plasma Albumin 3.4 - 5.0 gm/dL Low No November 09 [Mass/vol informati 2016 2:49 ume] in on in PM Serum or source Plasma data Alkaline 46 - 116 U/L High No November 09 phosphata informati 2016 2:49 se on in PM [Enzymati source c data activity/ volume] in Serum or Plasma Bilirubin 0.2 - 1.0 mg/dL Normal No November 09 .total informati 2016 2:49 [Mass/vol on in PM ume] in source Serum or data Plasma Urea 7 - 18 mg/dL Normal No November 09 nitrogen informati 2016 2:49 [Mass/vol on in PM ume] in source Serum or data Plasma Calcium 8.5 - mg/dL Normal No November 09 [Mass/vol 10.1 informati 2016 2:49 ume] in on in PM Serum or source Plasma data Chloride 98 - 107 mmoL/L Low No November 09 [Moles/vo informati 2016 2:49 lume] in on in PM Serum or source Plasma data Carbon 21.0 - mmoL/L Normal No November 09 dioxide, 32.0 informati 2016 2:49 total on in PM [Moles/vo source lume] in data Serum or Plasma Creatinin 0.55 - mg/dL Normal No November 09 e 1.02 inform2016 2:49 [Mass/vol on in PM ume] in source Serum or data Plasma Estimated 59- ML/MIN Low REFERENCE November 09 RANGE: 2016 2:49 glomerula >60 PM r ML/MIN/1. filtratio 73 SQUARE n rate METERSIf (GF this patient is -A merican, then multiply theresult by 1.210. Globulin 1.3 - 3.2 gm/dL High No November 09 [Mass/vol informati 2016 2:49 ume] in on in PM Serum source data Glucose 74 - 106 mg/dL Normal No November 09 [Mass/vol informati 2016 2:49 ume] in on in PM Serum or source Plasma data Potassium 3.5 - 5.1 mmoL/L Normal No November 09 inform2016 2:49 [Moles/vo on in PM lume] in source Serum or data Plasma Sodium 136 - 145 mmoL/L Low No November 09 [Moles/vo informati 2016 2:49 lume] in on in PM Serum or source Plasma data Aspartate 15 - 37 U/L Normal No November 09 inform2016 2:49 aminotran on in PM sferase source [Enzymati data c activity/ volume] in Serum or Plasma Alanine 12 - 78 U/L Normal No November 09 aminotran inform2016 2:49 sferase on in PM [Enzymati source c data activity/ volume] in Serum or Plasma Protein 6.4 - 8.2 gm/dL Normal No November 09 [Mass/vol informati 2016 2:49 ume] in on in PM Serum or source Plasma data INR in Blood by Coagulation assay Observa Value Referen Units Interpr Notes Date tion ce etation Range INR in 0.9 - 1.1 No Normal INDICATIO November 09 Blood by informati N 2016 2:49 Coagulati on in PM on assay source INR data RANGETHER APY FOR DVT, PE, ATRIAL FIB; 2.0 - 3.0PROPHY LAXIS FOR VTETHERAP Y FOR MECHANICA L HEART 2.5 - 3.5VALVE; PREVENTIO N OF SYSTEMICE MBOLISM SECONDARY TO AMI Prothromb 9.4 - SECONDS Normal No November 09 in time 11.8 informati 2016 2:49 (PT) in on in PM Platelet source poor data plasma by Coagulati on assay CBC W Auto Differential panel in Blood Observa Value Referen Units Interpr Notes Date tion ce etation Range Basophils 0 - 0.2 K/MM3 Normal No November 09 inform2016 2:49 [#/volume on in PM ] in source Blood by data Automated count Basophils 0.1 - 2.0 % Normal No November 09 / informati 2016 2:49 leukocyte on in PM s in source Blood by data Automated count Eosinophi 0.0 - 0.4 K/mm3 Normal No November 09 ls informati 2016 2:49 [#/volume on in PM ] in source Blood by data Automated count Eosinophi 0.1 - % Normal No November 09 ls/100 12.0 informati 2016 2:49 leukocyte on in PM s in source Blood by data Automated count Granulocy 1.8 - 7.8 K/mm3 Normal No November 09 virgilio informati 2016 2:49 [#/volume on in PM ] in source Blood by data Automated count Granulocy 37.0 - % Normal No November 09 virgilio/100 80.0 informati 2016 2:49 leukocyte on in PM s in source Blood by data Automated count Hematocri 37.0 - % Normal No November 09 t [Volume 47.0 informati 2016 2:49 on in PM Fraction] source of Blood data Hemoglobi 12.2 - g/dL Normal No November 09 n 16.2 informati 2016 2:49 [Mass/vol on in PM ume] in source Blood data Lymphocyt 0.7 - 4.5 K/mm3 Normal No November 09 es informati 2016 2:49 [#/volume on in PM ] in source Unspecifi data ed specimen by Automated count Lymphocyt 10 - 50.0 % Normal No November 09 es informati 2016 2:49 [#/volume on in PM ] in source Unspecifi data ed specimen by Automated count Erythrocy 27 - 31.2 pg High No November 09 te mean informati 2016 2:49 corpuscul on in PM ar source hemoglobi data n [Entitic mass] Erythrocy 31.8 - g/dl Normal No November 09 te mean 35.4 informati 2017 2:49 corpuscul on in PM ar source hemoglobi data n concentra tion [Mass/vol ume] by Automated count Erythrocy 82.2 - fl Normal No November 09 te mean 97.8 informati 2016 2:49 corpuscul on in PM ar volume source [Entitic data volume] by Automated count Monocytes 0.1 - 1.0 K/mm3 Normal No November 09 inform2016 2:49 [#/volume on in PM ] in source Blood by data Automated count Monocytes 1.7 - 9.3 % Normal No November 09 /100 informati 2016 2:49 leukocyte on in PM s in source Blood by data Automated count Platelet 7.4 - fl Low No November 09 mean 10.4 informati 2016 2:49 volume on in PM [Entitic source volume] data in Blood by Automated count Platelets 142 - 424 K/mm3 Normal No November 09 informati 2016 2:49 [#/volume on in PM ] in source Blood data Erythrocy 4.2 - 5.4 M/mm3 Low No November 09 virgilio informati 2016 2:49 [#/volume on in PM ] in source Amniotic data fluid Erythrocy 11.5 - % Normal No November 09 te 17.5 informati 2016 2:49 distribut on in PM ion width source [Entitic data volume] by Automated count Leukocyte 4.8 - K/MM3 Normal No November 09 s 10.8 informati 2016 2:49 [#/volume on in PM ] in source Blood data
--- OUTSIDE RECORDS SUMMARY | 2017-03-27 05:25 | External Medical Summary Rpt ---
Author Author [employer], [employer] Organization [employer] Address Unknown Phone Unavailable [...] enopausal Women: 8.1 - 31.6Perfo rmed at: [address] [id number] Power Lineman: Guillermo Simms MD, Phone: [phone] Collagen crosslinked N-telopeptide [Moles/volume] in Serum Observa Value Referen Units Interpr Notes Date tion ce etation Range Collagen 6.2 - No High INFCE Feb 01 crosslink 19.0 informati Result 2017 ed on in Units: 10:27 AM N-telopep source nmol tide data BCE/LPerf [Moles/vo ormed at: lume] in - Serum Lab[address] [id number] Power Lineman: Guillermo Simms MD, Phone: [phone] Osteocalcin [Mass/volume] in Serum or Plasma Observa Value Referen Units Interpr Notes Date tion ce etation Range Osteocalc . ng/mL No Pre-menop Feb 01 in informati ausal 2017 [Mass/vol on in Women 10:27 AM ume] in source 4.9 - Serum or data 30.9Post- Plasma menopausa l Women 9.4 - 47.4Perfo rmed at: [address] [id number] Power Lineman: Guillermo Simms MD, Phone: [phone] 25-Hydroxyvitamin D [Mass/volume] in Serum or Plasma Observa Value Referen Units Interpr Notes Date tion ce etation Range 25-Hydrox 30.0 - ng/mL No Vitamin D Feb 01 yvitamin 100.0 informati 2017 D on in deficienc 10:27 AM [Mass/vol source y has ume] in data been Serum or defined Plasma by the [place] [facility] e and an Endocrine Society practice guideline as alevel of serum 25-OH vitamin D less than 20 ng/mL (1,2).The Endocrine Society went on to further define vitamin Dinsuffic iency as a level between 21 and 29 ng/mL (2).1. IOM (Institut e of Medicine) . 2010. Dietary reference intakes for calcium and D. [place]: [employer].2. Julius MF, [place], Howie Petit DIMAS, et al.Evalua tion, treatment , and preventio n of vitamin Ddeficien cy: an Endocrine Society clinical practiceg uideline. JCEM. 2010; 96(7):191 1-30.Perf ormed at: [place] - [facility] [place] [address] [address] [place] [id number] Power Lineman: Aris Hernandez PhD, Phone: [phone] Renal function 2000 panel in Serum [...]
== END 2017-03-04 17:57 | disposition home or self-care (01) ==
LOC: ER 15:57
DX: M25.561 Pain in right knee (principal); W01.0XXA Fall on same level from slipping, tripping and stumbling without subsequent striking against object, initial encounter; Y92.9 Unspecified place or not applicable; I10 Essential (primary) hypertension; M54.9 Dorsalgia, unspecified; G89.29 Other chronic pain; J44.9 Chronic obstructive pulmonary disease, unspecified; E78.5 Hyperlipidemia, unspecified; Z79.51 Long term (current) use of inhaled steroids; Z79.52 Long term (current) use of systemic steroids; Z79.899 Other long term (current) drug therapy; Z79.891 Long term (current) use of opiate analgesic; Z99.81 Dependence on supplemental oxygen

== ENCOUNTER 2017-05-30 13:17 | Outpatient (CLI) | payer MEDICARE, BC ==
[2017-05-30 13:54] LABS: GFR (ESTIMATED) 55 ML/MIN (59-)
[2017-05-30 14:25] VITALS: BP 127/77
[2017-05-30 14:40] VITALS: BP 134/76
[2017-05-30 14:50] VITALS: BP 112/64
== END 2017-05-30 14:55 | disposition home or self-care (01) ==
LOC: COP 13:17
PROVIDERS: Internal Medicine Nephrology
DX: M81.0 Age-related osteoporosis without current pathological fracture (principal)
CPT/HCPCS: J3489